=== PATIENT | female | born 1945 | race Hispanic/Latino ===

== ENCOUNTER 2017-03-28 13:21 | Emergency (ER) | payer MEDICARE, OTHER ==
[2017-03-28 13:22] VITALS: BMI 26.3
[2017-03-28 13:41] VITALS: RESP 16; TEMP 97.6
--- NOTE | 2017-03-28 14:08 | ED PDOC ---
Arrival/HPI - General Chief Complaint: GI Problem Time Seen by Provider: 03/28/17 13:49 Historian: Patient - History of Present Illness Narrative History of Present Illness (Text): 03/28/17 14:01 A 71 year old female, whose past medical history includes hypertension, hyperlipidemia, diabetes, and mild MR, sent into the emergency department from [facility] for an itchy rash around her eyes since this morning. Patient notes nausea and 1 episode of non-bilious non-bloody vomiting. Patient believes she developed the rash shortly after vomiting. Patient denies any vision changes, fever, chills, diarrhea, abdominal pain, urinary symptoms, hematuria, hematochezia, chest pain, shortness of breath, cough or any other complaints. PMD: Dr. Allen Time/Duration: Other (this morning) Symptom Course: Unchanged Quality: Other Context: Home (fci) Past Medical History - Provider Review Nursing Documentation Reviewed: Yes - Infectious Disease Hx of Infectious Diseases: None - Tetanus Immunization Tetanus Immunization: Unknown - Reproductive Menopause: Yes - Cardiac Hx Hypertension: Yes - Endocrine/Metabolic Hx Diabetes Mellitus Type 2: Yes - Psychiatric Hx Substance Use: No Family/Social History - Physician Review Nursing Documentation Reviewed: Yes Family/Social History: No Known Family HX Smoking Status: Never Smoked Hx Alcohol Use: No Hx Substance Use: No Allergies/Home Meds Allergies/Adverse Reactions: Allergies gentamicin [Gentamicin] Allergy (Verified 09/10/15 23:05) RASH ranitidine Allergy (Verified 09/10/15 23:05) RASH Home Medications: Home Meds Medication Instructions Recorded Confirmed Acarbose [Precose 50 mg Tab] 50 mg PO TID 03/28/17 03/28/17 Atorvastatin [Lipitor] 80 mg PO DAILY 03/28/17 03/28/17 Calcium Carbonate [Oscal] 500 mg PO BID 03/28/17 03/28/17 Docusate [Colace] 100 mg PO TID 03/28/17 03/28/17 Famotidine [Pepcid] 20 mg PO BID 03/28/17 03/28/17 Glimepiride [amaRYL] 4 mg PO BID 03/28/17 03/28/17 Haloperidol [Haldol] 1 mg PO BID 03/28/17 03/28/17 Metformin HCl [Glucophage] 1,000 mg PO BID 03/28/17 03/28/17 Metoclopramide [Reglan] 10 mg PO DAILY 03/28/17 03/28/17 Nortriptyline [Nortriptyline HCl] 25 mg PO DAILY 03/28/17 03/28/17 Pioglitazone [Actos] 45 mg PO DAILY 03/28/17 03/28/17 SITagliptin [Januvia] 100 mg PO DAILY 03/28/17 03/28/17 Review of Systems - Physician Review All systems were reviewed & negative as marked: Yes - Review of Systems Constitutional: absent: Fevers, Night Sweats Eyes: absent: Vision Changes Respiratory: absent: SOB, Cough Cardiovascular: absent: Chest Pain Gastrointestinal: Nausea, Vomiting. absent: Abdominal Pain, Diarrhea, Hematochezia Genitourinary Female: absent: Dysuria, Frequency, Hematuria Skin: Rash (around eyes) Physical Exam Vital Signs Reviewed: Yes Vital Signs Temp Pulse Resp BP Pulse Ox 03/28/17 16:23 90 16 142/82 100 03/28/17 13:36 97.6 F 98 H 16 145/79 97 Temperature: Afebrile Blood Pressure: Normal Pulse: Regular Respiratory Rate: Normal Appearance: Positive for: Well-Appearing, Non-Toxic, Comfortable Pain Distress: None Mental Status: Positive for: Alert and Oriented X 3 - Systems Exam Head: Present: Atraumatic, Normocephalic Pupils: Present: PERRL Extroacular Muscles: Present: EOMI Conjunctiva: Present: Normal Mouth: Present: Moist Mucous Membranes Neck: Present: Normal Range of Motion Respiratory/Chest: Present: Clear to Auscultation, Good Air Exchange. No: Respiratory Distress, Accessory Muscle Use Cardiovascular: Present: Regular Rate and Rhythm, Normal S1, S2. No: Murmurs Abdomen: Present: Normal Bowel Sounds. No: Tenderness, Distention, Peritoneal Signs Back: Present: Normal Inspection Upper Extremity: Present: Normal Inspection. No: Cyanosis, Edema Lower Extremity: Present: Normal Inspection. No: Edema Neurological: Present: GCS=15, CN II-XII Intact, Speech Normal Skin: Present: Warm, Dry, Rashes (petechial rash around eyes) Psychiatric: Present: Alert, Oriented x 3, Normal Insight, Normal Concentration Medical Decision Making ED Course and Treatment: 03/28/17 14:01 Impression: A 71 year old female with a rash around her eye. Patient notes nausea. Differential Diagnosis included but are not limited to: Petechial rash on face, vomiting induced. Plan: -- Labs -- Reassess and disposition Progress Notes: 03/28/17 16:38 Patient given Zofran for nausea. Blood work reviewed. Platelets and Coags normal. Rash is most likely petechaie post vomiting. Will advise beam builder helper from nursing home and patient to make sure she follows up with Dr. Allen in 1-2 days. Advised them to return to the ED if she develops fever, worsening rash, neck pain or stiffness, weakness, change of mental status or any other concern. - Lab Interpretations Lab Results: 03/28/17 14:20 03/28/17 14:20 Lab Results 03/28/17 14:20: Sodium 142, Potassium 4.5, Chloride 101, Carbon Dioxide 28, Anion Gap 18, BUN 11, Creatinine 0.7, Est GFR ( Amer) > 60, Est GFR (Non- Af Amer) > 60, Random Glucose 194 H, Calcium 9.8 03/28/17 14:20: PT 11.4, INR 1.06, APTT 30.3 03/28/17 14:20: WBC 8.4 D, RBC 4.53, Hgb 12.9, Hct 39.2, MCV 86.5, MCH 28.5, MCHC 32.9, RDW 15.2 H, Plt Count 268, MPV 10.2, Gran % 68.4 H, Lymph % (Auto) 24.2, [place] % (Auto) 6.1 H, Eos % (Auto) 1.2 L, Baso % (Auto) 0.1, Gran # 5.71, Lymph # 2.0, [place] # 0.5, Eos # 0.1, Baso # 0.01 I have reviewed the lab results: Yes Interpretation: All labs normal - Medication Orders Current Medication Orders: Discontinued Medications Ondansetron HCl (Zofran Odt) 4 mg PO STAT STA Stop: 03/28/17 16:14 Last Admin: 03/28/17 16:20 Dose: 4 mg - Scribe Statement The provider has reviewed the documentation as recorded by the Monty Bennett Provider Waliibe Attestation: All medical record entries made by the Monty were at my direction and personally dictated by me. I have reviewed the chart and agree that the record accurately reflects my personal performance of the history, physical exam, medical decision making, and the department course for this patient. I have also personally directed, reviewed, and agree with the discharge instructions and disposition. Disposition/Present on Arrival - Present on Arrival Any Indicators Present on Arrival: No History of DVT/PE: No History of Uncontrolled Diabetes: No Urinary Catheter: No History of Decub. Ulcer: No History Surgical Site Infection Following: None - Disposition Have Diagnosis and Disposition been Completed?: Yes Diagnosis: Facial rash, Nausea Disposition: HOME/ ROUTINE Disposition Time: 16:05 Patient Plan: Discharge Patient Problems: Current Active Problems Problem Status Onset Facial rash Acute Nausea Acute Condition: GOOD Discharge Instructions (ExitCare): Acute Rash (ED) Additional Instructions: Aung, thank you for letting us take care of you today. Your provider was Dr. Watkins. You were treated for Facial Rash. The emergency medical care you received today was directed at your acute symptoms. If you were prescribed any medication, please fill it and take as directed. It may take several days for your symptoms to resolve. Return to the Emergency Department if your symptoms worsen, do not improve, or if you have any other problems. Please contact your doctor or call one of the physicians/clinics you have been referred to that are listed on the Patient Visit Information form that is included in your discharge packet. Bring any paperwork you were given at discharge with you along with any medications you are taking to your follow up visit. Our treatment cannot replace ongoing medical care by a primary care provider (PCP) outside of the emergency department. Thank you for allowing the [facility] team to be part of your care today. If you had an X-Ray or CT scan: A Radiologist will review the ED reading if any change in treatment is needed we will contact you. If you had a blood, urine, or wound culture: It will take several days for the results, if any change in treatment is needed we will contact you. If you had an STI test: It will take 48 hours for the results. Please call after 1 week if you have not heard back. Prescriptions: DiphenhydrAMINE [Benadryl] 25 mg PO Q4 PRN #30 cap PRN Reason: Itching / Pruritus Ondansetron ODT [Zofran ODT] 4 mg PO Q6 #14 odt Referrals: Kobi Allen DO [Primary Care Provider] - Follow up with primary Davida Arroyo MD [Staff Provider] - Follow up with primary Forms: [employer] ([place]rainian)
[2017-03-28 14:38] LABS: BASO # 0.01 K/mm3 (0.0-2.0); BASO % 0.1 % (0.0-3.0); EOS # 0.1 (0.0-0.7); EOS % 1.2 % (1.5-5.0); GRAN # 5.71 (1.4-6.5); GRAN % 68.4 % (50.0-68.0); HEMATOCRIT 39.2 % (36.0-48.0); LYMPH % 24.2 % (22.0-35.0); MEAN CELL VOLUME 86.5 fl (80.0-105.0); MEAN CORPUSCULAR HEMOGLOBIN 28.5 pg (25.0-35.0); MEAN CORPUSCULAR HGB CONC 32.9 g/dl (31.0-37.0); MEAN PLATELET VOLUME 10.2 fl (7.0-11.0); MONO # 0.5 (0.1-0.6); MONO % 6.1 % (1.0-6.0); RED CELL DISTRIBUTION WIDTH 15.2 % (11.5-14.5); WHITE BLOOD COUNT 8.4 10^3/ul (4.5-11.0)
[2017-03-28 14:46] LABS: BLOOD UREA NITROGEN 11 mg/dL (7-21); CALCIUM 9.8 mg/dL (8.4-10.5); CARBON DIOXIDE 28 mmol/L (21-33); CHLORIDE 101 mmol/L (98-107); GFR AFRICAN-AMERICAN > 60; GLUCOSE,RANDOM 194 mg/dL (70-110); POTASSIUM 4.5 mmol/L (3.6-5.0); SODIUM 142 mmol/L (132-148)
[2017-03-28 14:55] LABS: INR 1.06 (0.93-1.08); PARTIAL THROMBOPLASTIN TIME 30.3 Seconds (23.7-30.8)
[2017-03-28 16:26] VITALS: BP 142/82; PULSE 90; O2SAT 100
== END 2017-03-28 16:47 ==
LOC: ED 13:21
DX: R21 Rash and other nonspecific skin eruption (principal); R11.0 Nausea; I10 Essential (primary) hypertension; E11.9 Type 2 diabetes mellitus without complications; E78.5 Hyperlipidemia, unspecified

== ENCOUNTER 2018-09-17 17:26 | Emergency (ER) | payer OTHER ==
[2018-09-17 18:05] VITALS: BMI 26.4
[2018-09-17 18:14] VITALS: BP 134/69; RESP 18; TEMP 97.5; O2SAT 98
--- NOTE | 2018-09-17 20:12 | ED PDOC ---
Arrival/HPI - General Chief Complaint: Finger,Hand,&Wrist Time Seen by Provider: 09/17/18 18:44 Historian: Patient - History of Present Illness Narrative History of Present Illness (Text): 09/17/18 20:13 72-year-old female presents to the emergency room for evaluation of left fourth finger injury after she injured her finger while using a bowling ball on Monday. Otherwise as per her economic consultant the patient is not complaining of any pain, decrease in range of motion or any other injuries. Past Medical History - Infectious Disease Hx of Infectious Diseases: None - Tetanus Immunization Tetanus Immunization: Unknown - Cardiac Hx Hypertension: Yes - Endocrine/Metabolic Hx Diabetes Mellitus Type 2: Yes - Gastrointestinal Hx Gastroesophageal Reflux: Yes - Psychiatric Hx Substance Use: No - Anesthesia Hx Anesthesia: No Family/Social History Family/Social History: No Known Family HX Smoking Status: Never Smoked Hx Alcohol Use: No Hx Substance Use: No Allergies/Home Meds Allergies/Adverse Reactions: Allergies gentamicin [Gentamicin] Allergy (Verified 09/17/18 18:05) RASH ranitidine Allergy (Verified 09/17/18 18:05) RASH Home Medications: Home Meds Medication Instructions Recorded Confirmed Acarbose [Precose 50 mg Tab] 50 mg PO TID 03/28/17 03/28/17 Atorvastatin [Lipitor] 80 mg PO DAILY 03/28/17 03/28/17 Calcium Carbonate [Oscal] 500 mg PO BID 03/28/17 03/28/17 Docusate [Colace] 100 mg PO TID 03/28/17 03/28/17 Famotidine [Pepcid] 20 mg PO BID 03/28/17 03/28/17 Glimepiride [amaRYL] 4 mg PO BID 03/28/17 03/28/17 Haloperidol [Haldol] 1 mg PO BID 03/28/17 03/28/17 Metformin HCl [Glucophage] 1,000 mg PO BID 03/28/17 03/28/17 Metoclopramide [Reglan] 10 mg PO DAILY 03/28/17 03/28/17 Nortriptyline [Nortriptyline HCl] 25 mg PO DAILY 03/28/17 03/28/17 Pioglitazone [Actos] 45 mg PO DAILY 03/28/17 03/28/17 SITagliptin [Januvia] 100 mg PO DAILY 03/28/17 03/28/17 Review of Systems - Review of Systems Constitutional: absent: Fatigue, Fevers Musculoskeletal: Arthralgias, Joint Swelling. absent: Back Pain, Neck Pain Skin: absent: Rash, Skin Lesions Physical Exam Vital Signs Temp Pulse Resp BP Pulse Ox 09/17/18 18:13 97.5 F L 87 18 134/69 98 Temperature: Afebrile Blood Pressure: Normal Pulse: Regular Respiratory Rate: Normal Appearance: Positive for: Well-Appearing, Non-Toxic, Comfortable Pain Distress: None Mental Status: Positive for: Alert and Oriented X 3 - Systems Exam Upper Extremity: Present: Normal ROM, NORMAL PULSES, Neurovascularly Intact, Capillary Refill < 2s, Other (L 4th digit : +ecchymosis, edema and tenderness to the distal volar aspect of the digit, distal sensation intact, nail intact, no subungual hematoma.). No: Temperature Abnormalties Neurological: Present: GCS=15, CN II-XII Intact Skin: Present: Warm, Dry, Normal Color. No: Rashes Psychiatric: Present: Alert Medical Decision Making ED Course and Treatment: 09/17/18 20:10 Plan : - XR 4th L digit XR left fourth digit: no fracture, no dislocation, as read by PA On reevaluation, patient remains awake alert and oriented 3 in no acute distress. X-ray results discussed with the patient and her economic consultant. Diagnosis of contusion discussed with the patient and her economic consultant. Advised to have the patient rest, ice and elevate her finger. Advised to follow up with primary care physician in 1-2 days without fail. Advised to give Tylenol as needed for pain. Return to the emergency room at any time for any new or worsening symptoms. Patient's economic consultant states she fully agrees with and understands discharge instructions. States that she agrees with the plan and disposition. Verbalized and repeated discharge instructions and plan. I have given the patient opportunity to ask any additional questions. - RAD Interpretation Radiology Orders: 09/17/18 18:51 HAND LEFT 4TH DIGIT (FINGER) [RAD] Stat - PA / SHIPPING & RECEIVING LEAD / Resident Statement MD/DO has reviewed & agrees with the documentation as recorded. Disposition/Present on Arrival - Present on Arrival Any Indicators Present on Arrival: No History of DVT/PE: No History of Uncontrolled Diabetes: No Urinary Catheter: No History of Decub. Ulcer: No History Surgical Site Infection Following: None - Disposition Have Diagnosis and Disposition been Completed?: Yes Diagnosis: Finger contusion Disposition: HOME/ ROUTINE Disposition Time: 20:00 Patient Plan: Discharge Patient Problems: Current Active Problems Problem Status Onset Finger contusion Acute Condition: STABLE Discharge Instructions (ExitCare): Contusion (DC) Additional Instructions: Thank you for letting us take care of you today. You were treated for finger contusion. The emergency medical care you received today was directed at your acute symptoms. Take tylenol for pain. Rest, ice and elevate the finger. It may take several days for your symptoms to resolve. Return to the Emergency Department if your symptoms worsen, do not improve, or if you have any other problems. Please contact your doctor or ortho referral provided in 2 days for re- evaluation and follow up. Bring any paperwork you were given at discharge with you along with any medications you are taking to your follow up visit. Our treatment cannot replace ongoing medical care by a primary care provider (PCP) outside of the emergency department. Thank you for allowing the [facility] team to be part of your care today. If you had an X-Ray : A Radiologist will review the ED reading if any change in treatment is needed we will contact you. Referrals: Kobi Allen DO [Primary Care Provider] - Follow up with primary Sterling Springer MD [Staff Provider] - Follow up with primary
[2018-09-17 22:26] VITALS: PULSE 90
--- NOTE | 2018-09-18 10:44 | RAD ---
Date of service: 09/17/2018 PROCEDURE: Left ring finger radiographs. HISTORY: pain COMPARISON: None. TECHNIQUE: AP radiograph of the left hand, as well as spot oblique and lateral images of left ring finger were obtained. FINDINGS: LEFT RING FINGER: No acute fracture or bone destruction in the ring finger. Remainder of the left hand (as seen on the AP view) is grossly normal in appearance. 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 SOFT TISSUES: Normal. OTHER FINDINGS: None. IMPRESSION: No acute displaced fracture or dislocation.
== END 2018-09-17 22:26 | disposition home or self-care (01) ==
LOC: ED 17:26
DX: S60.042A Contusion of left ring finger without damage to nail, initial encounter (principal); Y93.54 Activity, bowling; I10 Essential (primary) hypertension; E11.9 Type 2 diabetes mellitus without complications